=== PATIENT | female | born 1965 | race Caucasian/White ===

== ENCOUNTER 2022-03-25 14:06 | Outpatient (CLI) | payer MEDICARE | END 2022-03-25 14:07 | disposition home or self-care (01) | LOC: CSHULT 14:06 | PROVIDERS: ATTEND Obstetrics & Gynecology | DX: N83.209 Unspecified ovarian cyst, unspecified side (principal) | CPT/HCPCS: 76856 ==

== ENCOUNTER 2023-03-06 12:01 | Outpatient (CLI) | payer MEDICARE | END 2023-03-06 12:02 | disposition home or self-care (01) | LOC: CSHMAMMO 12:01 | PROVIDERS: ATTEND Family Medicine | DX: Z13.820 Encounter for screening for osteoporosis (principal) | CPT/HCPCS: 77080 ==